=== PATIENT | male | born 1985 | race Caucasian/White ===

== ENCOUNTER 2017-04-07 20:33 | Emergency (ER) | payer BC, MEDICAID ==
[~2017-04-07] VITALS: Ht 190.5 cm; Wt 107.0 kg
[2017-04-08] MEDS ORDERED: DEXAMETHASONE 10MG/ML 1ML VIAL IM ONE (01:15)
[2017-04-08] MEDS ORDERED: KETOROLAC 60MG/2ML VIAL IM ONE (01:15)
[2017-04-08 01:18] VITALS: BP 119/78
== END 2017-04-08 01:37 | disposition home or self-care (01) ==
LOC: ER 20:33
DX: M54.5 Low back pain (principal); J45.909 Unspecified asthma, uncomplicated; F12.90 Cannabis use, unspecified, uncomplicated
CPT/HCPCS: 96372; 99284; J1100; J1885

== ENCOUNTER 2017-09-19 18:04 | Emergency (ER) | payer BC, MEDICAID ==
[~2017-09-19] VITALS: Ht 193 cm; Wt 104.0 kg
[2017-09-19] MEDS ORDERED: ACETAMINOPHEN 325MG TABLET PO ONE (20:15)
[2017-09-19] MEDS ORDERED: DEXAMETHASONE 4MG/ML 1ML VIAL IM ONE (20:15)
[2017-09-19] MEDS ORDERED: KETOROLAC 30MG/ML VIAL IM ONE (20:15)
[2017-09-19] MEDS ORDERED: CLINDAMYCIN HCL 150MG CAPSULE PO SCH (20:15)
[2017-09-19] MEDS ORDERED: SODIUM CHLORIDE 0.9% 1,000 ML IV ONE (20:23)
[2017-09-19] MEDS ORDERED: CEFTRIAXONE 2 G PREMIX 50 ML IV ONE (20:30)
[2017-09-19] MEDS ORDERED: METRONIDAZOLE 500 MG PREMIX 100 ML IV ONE (20:30)
[2017-09-19] MEDS ORDERED: DEXAMETHASONE 10 MG/ML VIAL IV ONE (20:30)
[2017-09-19] MEDS ORDERED: KETOROLAC 30MG/ML VIAL IV ONE (20:30)
[2017-09-19 23:55] VITALS: BP 129/73
== END 2017-09-20 00:09 | disposition home or self-care (01) ==
LOC: ER 18:51
DX: J36 Peritonsillar abscess (principal); J45.909 Unspecified asthma, uncomplicated; F12.10 Cannabis abuse, uncomplicated
CPT/HCPCS: 96361; 96365; 96366; 96368; 96375; 99285; J0696; J1100; J1885; J3490; J7030; Z7610

== ENCOUNTER 2017-11-13 17:45 | Emergency (ER) | payer MEDICAID ==
[~2017-11-13] VITALS: Ht 190.5 cm; Wt 110.0 kg
[2017-11-13] MEDS ORDERED: SODIUM CHLORIDE 0.9% 1,000 ML IV SCH (20:21)
[2017-11-13] MEDS ORDERED: ACETAMINOPHEN 325MG TABLET PO STA (20:21)
[2017-11-13] MEDS ORDERED: CEFTRIAXONE 1 G PREMIX 50 ML IV ONE (20:30)
[2017-11-13] MEDS ORDERED: KETOROLAC 30MG/ML VIAL IV ONE (20:30)
[2017-11-13] MEDS ORDERED: METHYLPREDNISOLONE SOD SUCC 125 MG/2 ML VIAL IV ONE (20:30)
[2017-11-13] MEDS ORDERED: ONDANSETRON HCL 4MG/2ML VIAL IV STA (20:55)
[2017-11-13 21:00] VITALS: BP 145/78
== END 2017-11-14 01:15 | disposition home or self-care (01) ==
LOC: ER 18:42
DX: J36 Peritonsillar abscess (principal); J45.909 Unspecified asthma, uncomplicated
CPT/HCPCS: 96365; 96375; 99285; J0696; J1885; J2405; J2930; J7030; Z7610